=== PATIENT | female | born 1990 | race African-American/Black ===

== ENCOUNTER 2019-01-21 10:50 | Day surgery (SDC) | payer BC ==
[2019-01-21] MEDS ORDERED: PROPOFOL 100 ML (13:53)
[2019-01-21] MEDS ORDERED: LIDOCAINE 2% (SDV) 5 ML INJ (13:56)
[2019-01-21] MEDS ORDERED: ROCURONIUM 50 MG INJ (13:56)
[2019-01-21] MEDS ORDERED: FENTAnyl 50 MCG/ML VIAL ×2 (13:57→14:47)
[2019-01-21] MEDS ORDERED: DEXAMETHASONE 4 MG/ML 5 ML INJ (14:50)
[2019-01-21] MEDS ORDERED: ONDANSETRON 4 MG INJ (14:50)
[2019-01-21] MEDS: LIDOCAINE 1%/EPI 30 ML INJ (15:29)
[2019-01-21] MEDS: PHENYLephrine 0.5% 15 ML NAS SPRAY (15:29)
[2019-01-21] MEDS ORDERED: GLYCOPYRROLATE 0.4 MG INJ (15:45)
[2019-01-21] MEDS ORDERED: NEOSTIGMINE 3 MG/3 ML SYRINGE (15:45)
[2019-01-21] MEDS ORDERED: MEPERIDINE 25 MG INJ IV (16:00)
[2019-01-21] MEDS ORDERED: FENTAnyl 50 MCG/ML VIAL IV (16:00)
[2019-01-21] MEDS ORDERED: hydrALAzine 20 MG INJ IV (16:00)
[2019-01-21] MEDS ORDERED: MIDAZOLAM 1 MG/ML 2 ML INJ IV (16:00)
[2019-01-21] MEDS ORDERED: ONDANSETRON 4 MG INJ IV (16:00)
[2019-01-21] MEDS ORDERED: EPHEDrine 25 MG/5 ML SYG IV (16:00)
[2019-01-21] MEDS ORDERED: DIPHENHYDRAMINE 50 MG INJ IV (16:00)
[2019-01-21] MEDS ORDERED: LABETALOL HCL 20MG INJ IV (16:00)
[2019-01-21] MEDS ORDERED: OXYCODONE/ACETAMINOPHEN (5/325) TAB PO ×2 (16:00)
[2019-01-21] MEDS ORDERED: ALBUTEROL 0.083% (NEB) 2.5 MG/3 ML AMP HHN (16:00)
[2019-01-21] MEDS: FENTAnyl 50 MCG/ML VIAL IV ×2 (16:12→16:33)
== END 2019-01-21 18:15 | disposition home or self-care (01) ==
LOC: SDS 10:50
DX: R49.0 Dysphonia (principal)
CPT/HCPCS: 31541; 84703; 88104; 88305